=== PATIENT | female | born 1980 | race Two or more races ===

== ENCOUNTER 2024-10-02 22:12 | Emergency (ER) | payer OTHER ==
[~2024-10-02] VITALS: Ht 160 cm; Wt 54.4 kg
[2024-10-02] MEDS ORDERED: PREVACID15 M1 (22:17)
[2024-10-02] MEDS ORDERED: ALLEGRA ALLERGY60 MG (22:17)
[2024-10-02] MEDS ORDERED: [UNRECOGNIZED DRUG - OTHER] (22:18)
== END 2024-10-02 23:51 | disposition home or self-care (01) ==
LOC: ER 22:14
DX: M25.512 Pain in left shoulder (principal); Z88.6 Allergy status to analgesic agent